=== PATIENT | female | born 1955 | race Caucasian/White ===

== ENCOUNTER 2017-05-17 09:59 | Outpatient (CLI) | payer OTHER ==
--- NOTE | 2017-05-18 15:52 | Mammography Report ---
DIGITAL SCREENING MAMMOGRAM: 05/17/2017 CLINICAL INDICATION: A 62-year-old, for screening. COMPARISON: 05/2016, 05/2015, 05/2014, 06/2013, 05/2013, 05/2012, 05/2011, 05/2010. TECHNIQUE: Routine CC and MLO projections were obtained of the breasts. FINDINGS: Scattered fibroglandular tissue is present within the breasts. There are no dominant charisma s, suspicious microcalcifications, or secondary signs of malignancy. In comparison to the previous st udies, there are no significant changes. ASSESSMENT: NO MAMMOGRAPHIC EVIDENCE OF MALIGNANCY. NO SIGNIFICANT INTERVAL CHANGES. RECOMMENDATION: Screening mammography is recommended annually. BIRADS category 1 - negative. STANDARD QUALIFYING STATEMENTS 1. This examination was reviewed with the aid of Computed-Aided Detection (CAD). 2. A negative or benign imaging report should not delay biopsy if clinically suspicious findings are present. Consider surgical consultation if warranted. More than 5% of cancers are not identified by i maging. 3. Dense breasts may obscure an underlying neoplasm. JOB #: [id number] EXT JOB #:[id number]
== END 2017-05-17 10:00 | disposition home or self-care (01) ==
LOC: DI 09:59
PROVIDERS: ATTEND Physician Assistant Medical
DX: Z12.31 Encounter for screening mammogram for malignant neoplasm of breast (principal)
CPT/HCPCS: 77067

== ENCOUNTER 2017-08-24 10:37 | Outpatient (CLI) | payer BC ==
--- NOTE | 2017-08-24 13:18 | XRAY Report ---
TWO VIEW RIGHT CALCANEUS: 08/24/2017 CLINICAL INDICATION: Pain, edema. FINDINGS: Frontal and lateral views of the right calcaneus demonstrate plantar calcaneal spurring. T here is no evidence of fracture. The joint spaces are unremarkable. IMPRESSION: PLANTAR CALCANEAL SPURRING. JOB #: [id number] EXT JOB #:[id number]
== END 2017-08-24 10:38 | disposition home or self-care (01) ==
LOC: DI 10:37
PROVIDERS: ATTEND Podiatrist
DX: M77.31 Calcaneal spur, right foot (principal)

== ENCOUNTER 2017-09-01 09:48 | Outpatient (CLI) | payer BC ==
--- NOTE | 2017-09-01 17:08 | MRI Report ---
EXAM: RIGHT ANKLE/HINDFOOT MRI WITHOUT CONTRAST EXAM DATE: 09/01/2017 11:02 a.m. CLINICAL HISTORY: Right Achilles tendon pain. Weakness. COMPARISON: None. TECHNIQUE: Multiplanar, multisequence T1-weighted and fluid-sensitive sequences of the ankle/hindfoot without contrast. Other: None. FINDINGS: Bones: Small plantar calcaneal enthesophytes. No acute fracture or bone lesions. Articular Cartilage: Unremarkable. Ligaments: The anterior and posterior tibiofibular, anterior and posterior talofibular, and calcaneof ibular ligaments are intact. The deep and superficial deltoid and spring ligaments are intact. Anterior Tendons: The tibialis anterior, extensor hallucis longus, and extensor digitorum longus tend ons are unremarkable. Medial Tendons: The tibialis posterior, flexor digitorum longus, and flexor hallucis longus tendons a re unremarkable. Lateral Tendons: Small focal partial-thickness split-type tear within the peroneal brevis tendon, jus t distal to the lateral malleolus. Peroneal longus tendon is intact. Achilles Tendon: Fusiform enlargement at the mid aspect of the Achilles tendon consistent with tendin osis. A small 4 x 2 x 3 mm focal low-grade partial tear at the medial aspect of the mid Achilles tend on. Edema within the medial aspect of the pre-Achilles fat pad. Musculature: Minimal edema at the distal aspect of the soleus muscle. Other: No effusions. The contents of the sinus tarsi and tarsal tunnel are unremarkable. Small ossicl e within the proximal aspect of the plantar fascia. No plantar fascial thickening or tear. The subcut aneous tissues are unremarkable. IMPRESSION: 1. Tendinosis at the mid Achilles tendon. Small low-grade partial tear at the medial aspect of the mi d Achilles tendon. Edema within the medial aspect of the pre-Achilles fat pad suggestive of Achilles paratendinitis. 2. Small plantar calcaneal enthesophyte. 3. Small focal partial-thickness split-type tear within the peroneal brevis tendon, just distal to la teral malleolus. [facility] MUSCULOSKELETAL RADIOLOGY SECTION Referring Provider Line: [phone] SITE ID: [id number]
== END 2017-09-01 09:49 | disposition home or self-care (01) ==
LOC: DI 09:48
PROVIDERS: ATTEND Podiatrist
DX: S86.011A Strain of right Achilles tendon, initial encounter (principal); M77.31 Calcaneal spur, right foot; S96.811A Strain of other specified muscles and tendons at ankle and foot level, right foot, initial encounter

== ENCOUNTER 2017-09-04 13:00 | Outpatient (CLI) | payer BC ==
[2017-09-04 15:17] LABS: TOTAL T3 1.15 ng/mL (0.87-1.78)
== END 2017-09-04 13:01 | disposition home or self-care (01) ==
LOC: LAB 13:00
PROVIDERS: ATTEND Podiatrist
DX: E03.9 Hypothyroidism, unspecified (principal); E13.9 Other specified diabetes mellitus without complications
CPT/HCPCS: 36415; 84436; 84443; 84480

== ENCOUNTER 2018-06-14 09:29 | Outpatient (CLI) | payer BC ==
--- NOTE | 2018-06-18 10:04 | Mammography Report ---
Reason: SCREENING MAMMO Procedure Date: 06/14/2018 Accession Number: [id number] / [id number] Procedure: [facility] - Screening Mammo Dig Bilat CPT Code: FULL RESULT: EXAM: Screening Mammo Dig Bilat DATE: 06/14/2018 9:49 AM CLINICAL HISTORY: Routine screening TECHNIQUE: Bilateral CC and MLO views were obtained. COMPARISON: 06/13/2017, 05/17/2016, 05/20/2015, 05/18/2014, 06/12/2013, and 05/30/2012 FINDINGS: There are scattered fibroglandular densities. There is been a gradual increase in the amount of fat within the breasts, particularly on the right. No suspicious masses, clustered microcalcifications, or regions of architectural distortion are identified. IMPRESSION: Negative examination RECOMMENDATION: Routine annual screening unless otherwise clinically indicated. BIRADS CATEGORY 1: Negative STANDARD QUALIFYING STATEMENTS: 1. This examination was reviewed with the aid of Computer-Aided Detection (CAD). 2. A negative or benign imaging report should not delay biopsy if clinically suspicious findings are present. Consider surgical consultation if warrented. More than 5% of cancers are not identified by imaging. 3. Dense breasts may obscure an underlying neoplasm.
== END 2018-06-14 09:30 | disposition home or self-care (01) ==
LOC: DI.N 09:29
PROVIDERS: ATTEND Physician Assistant Medical
DX: Z12.31 Encounter for screening mammogram for malignant neoplasm of breast (principal)
CPT/HCPCS: 77067

== ENCOUNTER 2019-06-18 13:20 | Outpatient (CLI) | payer BC ==
--- NOTE | 2019-06-18 16:49 | Mammography Report ---
Reason: SCREENING MAMMO Procedure Date: 06/18/2019 Accession Number: [id number] / [id number] Procedure: [facility] - Screening Mammo w/Alexandro CPT Code: FULL RESULT: EXAM: Screening Mammo w/Alexandro DATE: 06/18/2019 1:48 PM CLINICAL HISTORY: Routine screening TECHNIQUE: (B) - Bilateral CC and MLO views were obtained. COMPARISON: 06/14/2018, 05/17/2017, 06/09/2016, 05/17/2016 and 05/20/2015 PARENCHYMAL PATTERN: (A) - The breasts demonstrate scattered fibroglandular densities bilaterally. FINDINGS: On the left no significant change. There are no suspicious masses, calcifications, or areas of distortion. On the right there is asymmetric density in the inferior medial breast approximately 6 cm from the nipple which appears to have increased slightly compared to previous. 2 faint nodular areas of increased density in the 12:00 position 9 to 10 cm from the nipple are also more apparent. No suspicious microcalcifications or architectural distortion. IMPRESSION: Negative examination left breast. Needs additional evaluation right breast. RECOMMENDATION: ([facility]) - Additional views using both Mammography and Ultrasound recommended. Right breast BI-RADS CATEGORY: (0) - Incomplete Examination - need additional evaluation. STANDARD QUALIFYING STATEMENTS: 1. This examination was not reviewed with the aid of Computer-Aided Detection (CAD). 2. A negative or benign imaging report should not preclude biopsy if clinically suspicious findings are present. 3. Dense breasts may obscure an underlying neoplasm. 4. This examination was reviewed with the aid of 3D breast imaging (tomosynthesis).
== END 2019-06-18 13:21 | disposition home or self-care (01) ==
LOC: DI 13:20
DX: Z12.31 Encounter for screening mammogram for malignant neoplasm of breast (principal); R92.8 Other abnormal and inconclusive findings on diagnostic imaging of breast
CPT/HCPCS: 77063; 77067

== ENCOUNTER 2019-07-02 10:10 | Outpatient (CLI) | payer BC ==
--- NOTE | 2019-07-02 13:48 | Mammography Report ---
Reason: ABN MAMMO - RT SPEC VIEWS Procedure Date: 07/02/2019 Accession Number: [id number] / [id number] Procedure: [facility] - Diag Special Views Dig RT CPT Code: FULL RESULT: EXAM: Diag Special Views Dig RT DATE: 07/02/2019 11:03 AM CLINICAL HISTORY: Follow-up abnormal mammogram 06/18/2019 TECHNIQUE: (R) - Right additional views were obtained COMPARISON: 06/18/2019 PARENCHYMAL PATTERN: (A) - The breasts demonstrate scattered fibroglandular densities bilaterally. FINDINGS: The asymmetric density in the inferior medial right breast dissipates with spot compression imaging. One of the nodular areas of increased density in the 12:00 position also dissipates on spot compression views; the other appears unchanged compared with priors dating back to 2015. IMPRESSION: Negative examination. BI-RADS category 1. RECOMMENDATION: (ANNUAL) - Recommend routine annual screening mammography. BI-RADS CATEGORY: (1) - Negative. STANDARD QUALIFYING STATEMENTS: 1. This examination was not reviewed with the aid of Computer-Aided Detection (CAD). 2. A negative or benign imaging report should not preclude biopsy if clinically suspicious findings are present. 3. Dense breasts may obscure an underlying neoplasm. 4. This examination was reviewed with the aid of 3D breast imaging (tomosynthesis).
== END 2019-07-02 10:11 | disposition home or self-care (01) ==
LOC: DI 10:10
PROVIDERS: ATTEND Physician Assistant Medical
DX: R92.8 Other abnormal and inconclusive findings on diagnostic imaging of breast (principal); N63.10 Unspecified lump in the right breast, unspecified quadrant

== ENCOUNTER 2019-07-25 08:38 | Outpatient (CLI) | payer BC ==
--- NOTE | 2019-07-27 21:55 | XRAY Report ---
Reason: PAIN EDEMA LAT ANKLE L Procedure Date: 07/25/2019 Accession Number: [id number] / [id number] Procedure: XR - Ankle 3 View LT CPT Code: FULL RESULT: EXAM: LEFT ANKLE RADIOGRAPHY EXAM DATE: 07/25/2019 08:53 AM. CLINICAL HISTORY: Pain and edema lateral left ankle. COMPARISON: CALCANEUS RT 08/24/2017 10:50 AM. TECHNIQUE: 3 views. FINDINGS: Bones: Small plantar calcaneal spur. No fractures or bone lesions. Joints: Normal. No effusion. No subluxations. The ankle mortise is normally aligned. Soft Tissues: Normal. No soft tissue swelling. IMPRESSION: No acute abnormality seen in the left ankle. [facility]
== END 2019-07-25 08:39 | disposition home or self-care (01) ==
LOC: DI 08:38
PROVIDERS: ATTEND Podiatrist
DX: M25.572 Pain in left ankle and joints of left foot (principal); M25.472 Effusion, left ankle

== ENCOUNTER 2020-04-15 10:51 | Outpatient (CLI) | payer OTHER ==
--- NOTE | 2020-04-15 13:16 | XRAY Report ---
PROCEDURE: Lumbar Spine 2 View INDICATIONS: LUMBAR RADICULOPATHY TECHNIQUE: 3 views of the lumbar spine were acquired. COMPARISON: 06/02/2015. FINDINGS: Bones: 5 [id number] vertebrae are present. There is normal bony alignment. No acute vertebral body compression fractures. No suspicious bony lesions. Multilevel lumbar spondylitic changes have progressed throughout the lumbar spine, most pronounced at L5-S1 and L2-L3. Lower lumbar facet arthr osis has also progressed. Soft tissues: Overlying bowel gas pattern is normal. No suspicious soft tissue calcifications. IMPRESSION: Lumbar spine without acute osseous abnormalities. Multilevel lumbar spondylosis has progressed, most pronounced at L5-S1 and at L2-L3. Reviewed by: Ryan Lombardi MD on 04/15/2020 1:15 PM PDT Approved by: Ryan Lombardi MD on 04/15/2020 1:15 PM PDT Station ID: [id number]
== END 2020-04-15 10:52 | disposition home or self-care (01) ==
LOC: DI 10:51
PROVIDERS: ATTEND Physician Assistant Medical
DX: M47.816 Spondylosis without myelopathy or radiculopathy, lumbar region (principal); M47.817 Spondylosis without myelopathy or radiculopathy, lumbosacral region
CPT/HCPCS: 72100

== ENCOUNTER 2020-09-02 10:47 | Outpatient (CLI) | payer OTHER ==
--- NOTE | 2020-09-03 13:53 | Mammography Report ---
BILATERAL DIGITAL SCREENING MAMMOGRAM 3D/2D: 09/02/2020 CLINICAL: Routine screening. Comparison is made to exams dated: 07/02/2019 mammogram, 06/18/2019 mammogram, 06/14/2018 mammogram, 05/16 mammogram, and 05/17/2016 mammogram - [facility]. The tissue of both breasts is predominantly fatty. No significant masses, calcifications, or other findings are seen in either breast. There has been no significant interval change. IMPRESSION: NEGATIVE There is no mammographic evidence of malignancy. A 1 year screening mammogram is recommended. This exam was interpreted at Station ID: [id number]. NOTE: For mammograms, a report in lay terms will be sent to the patient. Approximately 15% of breast malignancies will not be visualized mammographically. In the management of a palpable breast mass, a negative mammogram must not discourage biopsy of a clinically suspicious lesion. Electronically Signed By: Kalia Collins M.D., jr/penrad:09/02/2020 11:30:35 ACR BI-RADS Category 1: Negative 3341F PARENCHYMAL PATTERN: (F) - The breast(s) demonstrate(s) diffuse fatty replacement. BI-RADS CATEGORY: (1) - 1 RECOMMENDATION: (ANNUAL) - Recommend routine annual screening mammography. [id number] 1 year screening LATERALITY: (B)
== END 2020-09-02 10:48 | disposition home or self-care (01) ==
LOC: DI 10:47
DX: Z12.31 Encounter for screening mammogram for malignant neoplasm of breast (principal)
CPT/HCPCS: 77063; 77067

== ENCOUNTER 2020-10-19 09:38 | Outpatient (CLI) | payer OTHER ==
--- NOTE | 2020-10-19 16:50 | DEXA Report ---
PROCEDURE: Dexa Spine and/or Hip INDICATIONS: POSTMENOPAUSAL TECHNIQUE: Dual energy x-ray absorptiometry (DXA) was performed on a [employer]. Regions measur ed are the AP Spine, femoral neck, and if needed forearm. COMPARISON: The prior similar study 05/17/2016. FINDINGS: Lumbar Spine: Bone Mineral Density 1.268 g/cm/cm,T score 0.7, normal, representing a statistically significant 5 .4% increase in bone mineral density at the lumbosacral spine overall. Left Hip: Bone Mineral Density 1.007 g/cm/cm,T score 0.0, normal, and this represents a statistically signific ant increase of 6.8% in bone mineral density at the left hip overall. Left Femoral Neck: Bone Mineral Density 0.793 g/cm/cm, T score -1.8, osteopenia (T score greater or equal to -1.0: NORMAL) (T score from -1.1 to -2.4: OSTEOPENIA) (T score less than or equal to -2.5 to: OSTEOPOROSIS) Impression: Increase in bone mineral density has been documented at the lumbosacral spine and the lef t hip overall. There is normal bone mineral density in these areas currently. There is mild osteopeni a at the left femoral neck. Patients with diagnosis of osteoporosis or osteopenia should have regular bone mineral density assess ment. For those eligible for Medicare, routine testing is allowed once every 2 years. Testing frequ ency can be increased for patients who have rapidly progressing disease or for those who are receivin g medical therapy to restore bone mass. Reviewed by: Rex Barcenas MD on 10/19/2020 4:49 PM PST Approved by: Rex Barcenas MD on 10/19/2020 4:49 PM PST Station ID: [id number]
== END 2020-10-19 09:39 | disposition home or self-care (01) ==
LOC: DI 09:38
PROVIDERS: ATTEND Physician Assistant Medical
DX: M85.88 Other specified disorders of bone density and structure, other site (principal)